=== PATIENT | male | born 1990 | race Caucasian/White ===

== ENCOUNTER 2018-08-21 07:39 | Observation (INO) | payer MEDICAID ==
[~2018-08-21] VITALS: Ht 190.5 cm; Wt 79.2 kg
[2018-08-21] MEDS ORDERED: ACETAMINOPHEN 325 MG TABLET ONE (08:15)
[2018-08-21] MEDS ORDERED: ACETAMINOPHEN 325 MG TABLET PO ONE (08:30)
[2018-08-21 09:32] LABS: AMPHETAMINE SCREEN, URINE Negative (Negative); BARBITURATE SCREEN, URINE Negative (Negative); BENZODIAZEPINE SCREEN, URINE Negative (Negative); CANNABINOID SCREEN, URINE Negative (Negative); COCAINE SCREEN, URINE Negative (Negative); METHADONE SCREEN, URINE Negative (Negative); OPIATE SCREEN, URINE Negative (Negative)
[2018-08-21 12:04] LABS: BASOPHILS # (AUTO) 0.03 x10^3/uL (0-0.1); BASOPHILS % (AUTO) 0 % (0-1); EOSINOPHILS % (AUTO) 1 % (1-7); LYMPHOCYTES % (AUTO) 23 % (22-44); MD NO; MEAN CORPUSCULAR HEMOGLOBIN 28.1 pg (27.5-34.5); MEAN CORPUSCULAR HGB CONC 33.4 g/dL (33.2-36.2); MEAN CORPUSCULAR VOLUME 84.2 fL (81-97); MONOCYTES # (AUTO) 0.51 x10^3/uL (0.2-0.8); MONOCYTES % (AUTO) 7 % (2-9); NEUTROPHILS # (AUTO) 5.38 x10^3/uL (1.8-6.8); NEUTROPHILS % (AUTO) 69 % (42-75); PLATELET COUNT 195 x10^3/uL (130-400); RED BLOOD COUNT 5.81 x10^6/uL (4.38-5.82); RED CELL DISTRIBUTION WIDTH 12.3 % (9.4-14.8)
[2018-08-21 12:08] LABS: ALBUMIN 4.5 g/dL (3.4-5.0); ANION GAP 6 mmol/L (5-15); CALCIUM 9.4 mg/dL (8.5-10.1); CHLORIDE 106 mmol/L (98-107)
[2018-08-21 12:32] LABS: ALANINE AMINOTRANSFERASE 22 U/L (12-78); ALKALINE PHOSPHATASE 71 U/L (45-117); BILIRUBIN,TOTAL 1.4 mg/dL (0.2-1.0); CREATININE 0.98 mg/dL (0.7-1.3); TOTAL PROTEIN 7.5 g/dL (6.4-8.2)
[2018-08-21 12:35] LABS: SALICYLATE LEVEL < 1.7 mg/dL (2.8-20.0)
[2018-08-21 12:36] LABS: ACETAMINOPHEN < 2 mcg/mL (10-30)
[2018-08-21] MEDS ORDERED: ONDANSETRON ODT 4 MG PO PRN (13:30)
[2018-08-21] MEDS ORDERED: DOCUSATE 100 MG CAPSULE PO PRN (13:30)
[2018-08-21] MEDS ORDERED: ACETAMINOPHEN 325 MG TABLET PO PRN (13:30)
[2018-08-21 18:44] VITALS: BP 119/78
[2018-08-21 20:02] VITALS: BP 116/78
[2018-08-21] MEDS: ZIPRASIDONE 20MG CAPSULE PO PRN (20:06)
[2018-08-21 20:09] VITALS: BP 116/78
[2018-08-22 07:18] VITALS: BP 101/67
[2018-08-22 19:23] VITALS: BP 99/58
[2018-08-22] MEDS: ZIPRASIDONE 20MG CAPSULE PO PRN (19:57)
== END 2018-08-22 21:35 ==
LOC: ED 10:22 → EDIP 12:56 → 2N 18:38
PROVIDERS: ADMIT Family Medicine; ATTEND Family Medicine
DX: F22 Delusional disorders (principal); F25.0 Schizoaffective disorder, bipolar type; E80.6 Other disorders of bilirubin metabolism; Z91.19 Patient's noncompliance with other medical treatment and regimen
CPT/HCPCS: 36415; 73564; 80053; 80307; 80329; 84443; 85025; 99285; G0378; G0480